=== PATIENT | male | born 1980 | race Caucasian/White ===

== ENCOUNTER 2018-07-15 10:45 | Emergency (ER) | payer OTHER ==
[2018-07-15 11:34] LABS: CREATININE 0.9 mg/dL (0.5-1.5); POTASSIUM 3.8 mmol/L (3.5-5.1)
[2018-07-15] MEDS ORDERED: IOHEXOL-350 75 ML VIAL IV ONE (11:40)
[2018-07-15] MEDS ORDERED: SODIUM CHLORIDE 0.9% 1000ML 1,000 ML IV ONE (11:47)
[2018-07-15] MEDS ORDERED: HYDROCODONE/ACETAMINOPHEN 10/325 MG TAB ONE (11:48)
== END 2018-07-15 12:48 | disposition home or self-care (01) ==
LOC: EDH 10:45
DX: K42.9 Umbilical hernia without obstruction or gangrene (principal); Z98.890 Other specified postprocedural states
CPT/HCPCS: 36415; 74177; 80048; 99285; J7030; Q9967